=== PATIENT | female | born 1950 | race African-American/Black ===

== ENCOUNTER 2023-11-26 22:31 | Emergency (ER) | payer OTHER ==
[~2023-11-26] VITALS: Ht 162.6 cm; Wt 70.0 kg
[2023-11-26 22:33] VITALS: TEMP 98.6; O2SAT 99
[2023-11-26 23:30] LABS: BASOPHILS % 1.1 % (0.0-2.0); HEMATOCRIT. 41.7 % (36.0-48.0); LYMPHOCYTES % 32.7 % (20.0-50.0); MEAN CORPUSCULAR HEMOGLOBIN 29.1 pg (28.0-32.0); MEAN CORPUSCULAR HGB CONC 33.6 g/dL (31.0-37.0); MEAN CORPUSCULAR VOLUME 86.7 fL (81.0-99.0); MEAN PLATELET VOLUME 7.2 fl (7.4-10.4); MONOCYTES % 7.1 % (2.0-8.0); NEUTROPHILS % 57.1 % (40.0-76.0); PLATELET 315 x1000/uL (130-400); RED BLOOD CELL COUNT 4.81 mill/uL (4.2-5.4); RED CELL DISTRIBUTION WIDTH 13.6 % (11.6-14.6); WHITE BLOOD COUNT 6.8 x1000/uL (4.5-11.0)
[2023-11-26] MEDS: METOPROLOL TARTRATE 5MG/5ML VIAL IV ONE (23:33)
[2023-11-26 23:42] LABS: INR 0.9; PROTHROMBIN TIME 10.4 sec (9.6-11.0)
[2023-11-26 23:52] LABS: LACTIC ACID 2.2 mmol/L (0.4-2.0)
[2023-11-27 00:03] LABS: ALANINE AMINOTRANSFERASE 7 IU/L (10-49); ALBUMIN 4.4 g/dL (3.2-4.8); ASPARTATE AMINOTRANSFERASE 22 IU/L (<34); BILIRUBIN TOTAL 0.2 mg/dL (0.1-1.0); CALCIUM 8.8 mg/dL (8.7-10.4); CARBON DIOXIDE 27 mEq/L (21-32); CHLORIDE 105 mEq/L (98-107); CREATININE 1.1 mg/dL (0.6-1.0); GLUCOSE 167 mg/dL (70-105); POTASSIUM 3.4 mEq/L (3.5-5.1); PROTEIN TOTAL 6.9 g/dL (6.0-8.3); SODIUM 141 mEq/L (136-145); THYROID STIMULATING HORMONE 1.52 uIU/mL (0.55-4.78); TROPONIN I HIGH SENSITIVITY 28 ng/L (3.0-34); UREA NITROGEN BLOOD 14 mg/dL (9-23)
[2023-11-27 01:16] LABS: TROPONIN I HIGH SENSITIVITY 74 ng/L (3.0-34)
[2023-11-27] MEDS ORDERED: HYDROCODONE/ACETAMINOPHEN 5/325MG TABLET PO ONE (04:30)
[2023-11-27] MEDS ORDERED: ASPIRIN 325MG TABLET PO ONE (04:30)
[2023-11-27 07:42] VITALS: BP 122/70; PULSE 75; RESP 14
[2023-11-27] MEDS: HYDROCODONE/ACETAMINOPHEN 5/325MG TABLET PO NR (07:42)
[2023-11-27] MEDS: ASPIRIN 325MG TABLET PO NR (07:42)
== END 2023-11-27 08:00 | disposition short-term general hospital (02) ==
LOC: ER 22:59 → CANBEDREQ 11-28 09:52
DX: I48.91 Unspecified atrial fibrillation (principal); E78.00 Pure hypercholesterolemia, unspecified; I10 Essential (primary) hypertension
CPT/HCPCS: 99291; 96374; 80053; 83880; 83605 ×2; 84443; 85025; 85610; 84484 ×2; 36415 ×2; 71045; J3490